=== PATIENT | male | born 1945 | race African-American/Black ===

== ENCOUNTER 2016-07-23 18:05 | Inpatient (IN) | payer BC ==
--- NOTE | ~2016-07-23 | CN ---
Consultation Report [facility] [address] [place]. [address] NAME: ACE MERLOS : 41 STATUS : ADM IN [facility]#: [id number] AGE: 71 ADM/REG DATE : 07/23/16 MR#: [id number] REPORT SERV DATE: 07/24/16 DICTATED BY: MERVIN PARSON DATE: 07/24/16 REPORT STATUS : Draft TRANSCRIBED BY: NAM DATE: 07/24/16 CONSULTATION DATE OF CONSULTATION: HISTORY OF PRESENT ILLNESS: This patient underwent a colonoscopy yesterday. Four polyps were removed. The procedure went uneventful. Few hours later, developed some rigors and some cough. He had a sore throat, hoarse voice. He did have a rapid respiratory rate. O2 saturation 85% on room air. Chest x-ray showed no definite pneumonia. He was admitted to the ICU. He is feeling better today having no dysphagia. MEDICATIONS: Medicines at home include potassium, Lasix. O2 saturation looks good. PHYSICAL EXAMINATION: GENERAL: Now, he is afebrile, saturating well on room air. Eating breakfast, which is red liquids. CHEST: Fairly clear. CARDIAC: Normal. ABDOMEN: Soft, nontender. IMPRESSION: Possible microaspiration during the procedure, but improved. No definite infiltrate. PLAN: 1. We will advance diet. 2. Follow along with you. MG/NAM Mervin Parson M.D. / [id number] CC: Roderick Tovar M.D.
--- NOTE | ~2016-07-23 | HP ---
History And Physical [address] [place]. [address] NAME: ACE MCCOY : 41 STATUS : ADM IN [facility]#: [id number] AGE: 71 ADM/REG DATE : 07/23/16 MR#: [id number] REPORT SERV DATE: 07/24/16 DICTATED BY: ANGELA RODRIGUES DATE: 07/23/16 REPORT STATUS : Draft TRANSCRIBED BY: MODL DATE: 07/23/16 DATE OF ADMISSION: 07/23/2016 POINT OF ENTRY: [facility] Emergency Department. PRIMARY STRAP STITCHER: Mervin Rankin M.D. CHIEF COMPLAINT: Chills and rigors. HISTORY OF PRESENT ILLNESS: Mr. Mccoy is a 71-year-old gentleman with history of gastroesophageal reflux disease, osteoarthritis, colonic polyps, and diverticulosis, who presents to the emergency department today with the acute onset of chills and rigors. The patient underwent outpatient colonoscopy with Dr. Rankin earlier today, which showed diverticulosis and polyps. Shortly after arriving home at approximately 3:00 or 3:30 this afternoon, he started to develop chills, rigors, as well as a cough with sputum production. The patient also reports some sore throat, hoarse voice as well as trouble swallowing. Upon arriving in the emergency department he then had an episode of nausea and vomiting. Denies any fevers, chest pain, palpitations, abdominal pain, diarrhea, constipation, dysuria, melena, hematochezia, hemoptysis, or hematemesis. Initial evaluation in the emergency department was notable for a pulse of 122, respirations of 28, saturating 85% on room air, and temperature was 98.8 degrees Fahrenheit. Labs notable for a normal white count with a lactic acid of 4.6. Chest x-ray is concerning for a left lower lobe infiltrate, concerning for pneumonia. The patient was started on IV Zosyn given concern for aspiration pneumonia and given 1 L of IV fluid prior to my evaluation. REVIEW OF SYSTEMS: Comprehensive review of systems otherwise negative unless listed in history of present illness. PREVIOUS MEDICAL HISTORY: 1. Osteoarthritis. 2. Gastroesophageal reflux disease. 3. Colonic polyps. 4. History of GI bleed secondary to diverticulosis. 5. Diverticulosis. PAST SURGICAL HISTORY: Left rotator cuff. ALLERGIES: NO KNOWN DRUG ALLERGIES. HOME MEDICATIONS: 1. Artificial Tears daily p.r.n. 2. Lasix 20 mg daily. 3. Potassium chloride 10 mEq daily. History And Physical [address] [address] NAME: ACE MCCOY : 41 STATUS : ADM IN PAT#: [id number] AGE: 71 ADM/REG DATE : 07/23/16 MR#: [id number] REPORT SERV DATE: 07/24/16 DICTATED BY: ANGELA RODRIGUES DATE: 07/23/16 REPORT STATUS : Draft TRANSCRIBED BY: NAM DATE: 07/23/16 4. Pravastatin 20 mg daily. SOCIAL HISTORY: Denies any tobacco, alcohol, or illicits. 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 FAMILY MEDICAL HISTORY: Mother of old age. Father's history is unknown. Siblings with diabetes. LABS AND IMAGIN. White count is 9.4, hemoglobin is 15.8, hematocrit is 47.6, and platelet count is 157. 2. Sodium is 140, potassium 3.6, chloride 106, carbon dioxide 26, BUN 17, creatinine 1.60, glucose is 157, calcium is 9.1, protein is 7.8, albumin is 3.8, bilirubin is 0.6, ALT is 25, AST is 17, and alkaline phosphatase is 72. 3. Urinalysis: Spec gravity is 1.018, no evidence of any infections. Lipase is 96. 4. Lactic acid is 4.6. 5. Chest x-ray per my review shows a left lower lobe basal infiltrate. 6. EKG per my review shows sinus tachycardia, heart rate of 103. No evidence of any acute ischemia or infarction. 7. ABG; pH is 7.44, pCO2 is 28, PO2 of 51, bicarb is 18, and saturating 89% on room air. PHYSICAL EXAMINATION: VITAL SIGNS: Temperature is 99.8 degrees Fahrenheit, pulse is 122, respirations 28, saturating 85% on room air, and blood pressure 136/88. On recheck, pulse is now 103, blood pressure is 125/72, saturating 100% on 3 L by nasal cannula, and repeat temperature is 98.9 degrees Fahrenheit. GENERAL: The patient is awake and alert, in no acute distress. Resting comfortably in bed. He is a well-developed, well-nourished, elderly male. Family is at bedside. Appears nontoxic. HEENT: Atraumatic and normocephalic. Moist mucous membranes. Pupils are equal, round, reactive to light and accommodation. Extraocular eye movements intact. No scleral icterus. NECK: No jugular venous distention. No carotid bruits. CARDIAC: Tachycardic rate, regular rhythm. No murmurs, rubs, or gallops. Normal S1, S2. LUNGS: He is on oxygen, but does not appear to be in any respiratory distress. Does have a left lower lobe basal rhonchi, otherwise no wheezes or rales or crackles appreciated. ABDOMEN: Soft, nontender, and nondistended. Good bowel sounds. No rebound, guarding, or rigidity. EXTREMITIES: Warm and perfused. No cyanosis, clubbing, or edema. SKIN: Warm and dry. PSYCH: Affect appropriate. NEURO: Alert and oriented x3. Cranial nerves 2 through 12 grossly intact. Speech is normal. Gait is not assessed. ASSESSMENT AND PLAN: Mr. Mccoy is a 71-year-old gentleman, who underwent recent colonoscopy now with evidence of severe sepsis and presumed aspiration pneumonia. PROBLEM LIST: 1. Severe sepsis. History And Physical [address] [address] NAME: ACE MCCOY : 41 STATUS : ADM IN [facility]#: [id number] AGE: 71 ADM/REG DATE : 07/23/16 MR#: [id number] REPORT SERV DATE: 07/24/16 DICTATED BY: ANGELA RODRIGUES DATE: 07/23/16 REPORT STATUS : Draft TRANSCRIBED BY: MODColton DATE: 07/23/16 2. Presumed aspiration pneumonia. 3. Acute hypoxic respiratory failure. 4. Acute kidney injury. 5. Dysphagia. 6. Nausea and vomiting. PLAN: 1. Severe sepsis. The patient meets criteria with tachycardia, tachypnea, source of infection as well as hypoxemia and elevated lactic acid level. We will bolus the patient 30 mL/kilos of IV fluid for a total of 2.5 L. I have ordered the additional a [id number]-uvl-[id number]-half to get to that. We will repeat a lactic acid level in three hours. We will place the patient on broad-spectrum antibiotics of IV Zosyn. We will admit the patient to the IMCU for close monitoring given severe sepsis. Of note, the patient's vital signs are stable and heart rate is improving. 2. Presumed aspiration pneumonia. The patient has evidence of a left lower lobe basal infiltrate. Given recent colonoscopy we suspect this is aspiration, we will treat as such with IV Zosyn. Follow up blood and sputum cultures as well as urinary antigens. 3. Acute kidney injury. Provide aggressive IV fluid hydration. 4. Dysphagia. Unclear etiology of the patient's dysphagia as he did not have an upper endoscopy or intubation as far as I am aware. We will consult Speech Therapy for evaluation. 5. Nausea and vomiting. The patient denies any abdominal pain. We will continue to monitor. I suspect it may be related to his sepsis and pneumonia. 6. DVT prophylaxis. Lovenox subcu. CODE STATUS: The patient wished to be full code. JCB/MODL Angela Rodrigues MD / [id number] CC: Roderick Tovar M.D. Michael Goodman, M.D.
--- NOTE | ~2016-07-23 | DS ---
Discharge Summary [facility] [address] [place]. [address] NAME: ACE MERLOS : 41 STATUS : DIS IN PAT#: [id number] AGE: 71 ADM/REG DATE : 07/23/16 MR#: [id number] REPORT SERV DATE: 07/26/16 DICTATED BY: TOPHER RATLIFF DATE: 07/25/16 REPORT STATUS : Draft TRANSCRIBED BY: MODColton DATE: 07/25/16 ADMISSION DATE: 07/23/2016 DISCHARGE DATE: 07/25/2016 REASON FOR ADMISSION: This is a 71-year-old gentleman with a history of polyps. He had presented to the emergency department with acute onset of chills, rigors, and cough. Had undergone an outpatient colonoscopy earlier in the day of admission and shortly after arriving home, began developing chills, rigors, a productive cough, sore throat, and hoarse voice. He came to the emergency department, had an episode of nausea and vomiting. DISCHARGE DIAGNOSES: 1. Aspiration pneumonitis, status post recent colonoscopy. 2. Sepsis, present on admission. 3. Hypoxic respiratory failure. 4. Acute kidney injury on chronic kidney disease, 2. HOSPITAL COURSE: 1. Aspiration pneumonitis. On admission, the patient had a chest x-ray that showed a concern for possible left lower lobe pneumonia. The patient had a swallow study performed which he passed. On admission, he had a normal white blood cell count, but he had a lactic acid of 4.6, hypoxia with a room air sat of 85%, heart rate of 122, and respirations of 28. He was admitted, and placed on IV Zosyn and aggressive IV fluids. The patient's procalcitonin on admit was 0.07, and then on the it was 19.98. His white blood cell count, which was normal at admit, went up to 16.0 and then down to 13.5 today. The patient's hypoxia resolved. His O2 sats were good on room air. No respiratory distress. Still having a productive cough with dark chen-colored sputum, but no fevers and no more rigors or chills. The patient has received 48 hours of IV Zosyn and appears stable for discharge. 2. Acute kidney injury on chronic kidney disease. On admission, the patient's creatinine was 1.60. His baseline is around 1.2 to 1.3. At discharge, his creatinine is 1.44. DISCHARGE CONDITION: Stable. DISCHARGE MEDICATIONS: 1. Furosemide 20 mg p.o. daily, to resume on 07/28. 2. Potassium chloride 10 mEq p.o. daily, resume on 07/28. 3. Pravachol 20 mg p.o. daily. 4. Guaifenesin 600 mg p.o. b.i.d. x7 days. 5. Augmentin 875 mg one tablet p.o. b.i.d. x4 more days. DISCHARGE PLAN: The patient is discharged home. Complete antibiotic course and follow up with primary care, Dr. Mino Broussard, next Saturday as previously scheduled. Discharge Summary [address] [address] NAME: ACE MERLOS : 41 STATUS : DIS IN PAT#: [id number] AGE: 71 ADM/REG DATE : 07/23/16 MR#: [id number] REPORT SERV DATE: 07/26/16 DICTATED BY: TOPHER RATLIFF DATE: 07/25/16 REPORT STATUS : Draft TRANSCRIBED BY: NAM DATE: 07/25/16 TDR/NAM Topher Ratliff APN / [id number] CC: Roderick Valdes M.D. Michael Goodman, M.D.
[2016-07-23 17:03] LABS: BASOPHILS 0.1 %; BASOPHILS ABSOLUTE 0.01 10/3/uL (0.0-0.16); EOSINOPHILS 0 %; IMMATURE GRANULOCYTES 0.1 %; IMMATURE GRANULOCYTES ABSOLUTE 0.01 10/3/uL (0.0-0.11); LYMPHOCYTES 18.7 %; LYMPHOCYTES ABSOLUTE 1.76 10/3/uL (0.67-4.30); MEAN CORPUS HGB CONC 33.6 g/dL (32.0-36.0); MEAN CORPUSCULAR HEMOGLOB 29.8 pg (26.0-34.0); MEAN CORPUSCULAR VOLUME 88.5 fL (80-100); MEAN PLATELET VOLUME 9.3 fL (9.2-13.0); MONOCYTES 1.8 %; MONOCYTES ABSOLUTE 0.17 10/3/uL (0.21-1.20); NEUTROPHILS 79.3 %; NEUTROPHILS ABSOLUTE 7.48 10/3/uL (2.02-8.40); PLATELET COUNT 157 10/3/uL (150-400); RBC DISTRIBUTION WIDTH 14.1 % (12.0-16.0)
[2016-07-23 17:05] LABS: ER CBC TAT 0 Hrs 08 Mins; HEMOGLOBIN 15.8 g/dL (13.6-17.8); MANUAL DIFF NO %; RED CELL COUNT 5.31 10/6/uL (4.7-6.1); WHITE BLOOD CELLS 9.4 10/3/uL (4.5-10.5)
[2016-07-23 17:10] LABS: INTERNATIONAL NORMAL RATI 1.2 UNITS (-); PROTIME (NOT ORD) 14.6 SEC (12.0-14.5)
[2016-07-23 17:20] LABS: ALBUMIN 3.8 G/DL (3.5-5.0); ALKALINE PHOSPHATASE 72 U/L (45-117); BUN (BLOOD UREA NITROGEN) 17 MG/DL (6-23); CALCIUM, SERUM 9.1 MG/DL (8.5-10.4); CHLORIDE, SERUM 106 MMOL/L (96-112); CO2 (CARBON DIOXIDE) 26 MMOL/L (24-34); GFR AFRICAN AMERICAN 49 ML/MIN (>=60); GFR NON AFRICAN AMERICAN 42 ML/MIN (>=60); POTASSIUM, SERUM 3.6 MMOL/L (3.5-5.3); SGOT(AST) 17 U/L (5-40); SGPT(ALT) 25 U/L (5-65); SODIUM, SERUM 140 MMOL/L (135-148); TOTAL BILIRUBIN 0.6 MG/DL (0-1.2); TOTAL PROTEIN 7.8 G/DL (6.0-8.5)
[2016-07-23 17:22] LABS: GLUCOSE, SERUM 157 MG/DL (60-99)
[2016-07-23 17:28] LABS: LACTATE 4.6 MMOL/L (0.3-2.4)
[2016-07-23 17:29] LABS: ALLENS TEST Pos; BE (BASE EXCESS) -4.1 MEQ/L (0 +/- 2.5); CARBOXYHEMOGLOBIN 1.4 % (0-3); HCO3 (ACTUAL BICARBONATE) 18.4 MEQ/L (23-27); HEMOBLOGIN CONTENT 15.7 G/DL (14-18); INSTRUMENT SERIAL # 8087; METHEMOGLOBIN 0.5 % (0-3); O2 CONTENT 19.1 VOL% (18-24); OPERATOR ID 32214; PCO2 (CO2 TENSION) 28 MMHG (35-45); PO2 (O2 TENSION) 51 MMHG (79-93); SAMPLE Arterial; pH 7.44 (7.37-7.43)
[~2016-07-23 18:05] MED LIST: MELOXICAM OR; MOBIC15 MG PO; NEXIUM; NEXIUM40 PO; PRAVAC PO; PRAVASTATIN
[2016-07-23] MEDS ORDERED: PRAVAC PO (18:11)
[2016-07-23] MEDS ORDERED: L20 PO (18:11)
[2016-07-23] MEDS ORDERED: KDUR10 PO (18:11)
[2016-07-23] MEDS ORDERED: SUPREP BOWEL PREP PO (18:12)
[2016-07-23] MEDS ORDERED: BION TEARS (18:12)
[2016-07-23 18:43] LABS: WBC (NOT ORDERED) (RFLEX) 0 (0-5)
[2016-07-23 18:57] LABS: ASCORBIC ACID (UR NOT ORDER) NEG (NEG); BILIRUBIN, URINE NEGATIVE (NEG); ER URINALYSIS TAT 0 Hrs 15 Mins; KETONE, URINE 20 MG/DL (NEG); LEUKOCYTE ESTERASE(NOT OR NEG (NEG); NITRITE (URINE) NEG (NEG)
[2016-07-23 22:28] LABS: TROPONIN I <0.02 NG/ML (<0.05)
[2016-07-23 23:14] LABS: PROCALCITONIN 0.07 ng/mL (<0.5)
[2016-07-24 05:36] LABS: BASOPHILS 0.1 %; BASOPHILS ABSOLUTE 0.01 10/3/uL (0.0-0.16); EOSINOPHILS 0.1 %; EOSINOPHILS ABSOLUTE 0.01 10/3/uL (0.0-0.53); HEMOGLOBIN 13.1 g/dL (13.6-17.8); IMMATURE GRANULOCYTES 0.2 %; IMMATURE GRANULOCYTES ABSOLUTE 0.03 10/3/uL (0.0-0.11); LYMPHOCYTES 9.7 %; LYMPHOCYTES ABSOLUTE 1.55 10/3/uL (0.67-4.30); MEAN CORPUS HGB CONC 33.9 g/dL (32.0-36.0); MEAN CORPUSCULAR HEMOGLOB 29.6 pg (26.0-34.0); MEAN CORPUSCULAR VOLUME 87.4 fL (80-100); MEAN PLATELET VOLUME 9.3 fL (9.2-13.0); MONOCYTES 8.1 %; NEUTROPHILS 81.8 %; NEUTROPHILS ABSOLUTE 13.12 10/3/uL (2.02-8.40); PLATELET COUNT 125 10/3/uL (150-400); RBC DISTRIBUTION WIDTH 14.1 % (12.0-16.0); RED CELL COUNT 4.43 10/6/uL (4.7-6.1)
[2016-07-24 05:41] LABS: HEMATOCRIT 38.7 % (40.0-51.0); MANUAL DIFF NO %
[2016-07-24 05:45] LABS: BUN (BLOOD UREA NITROGEN) 17 MG/DL (6-23); CHLORIDE, SERUM 111 MMOL/L (96-112); CO2 (CARBON DIOXIDE) 27 MMOL/L (24-34); GFR AFRICAN AMERICAN 53 ML/MIN (>=60); GFR NON AFRICAN AMERICAN 46 ML/MIN (>=60); PHOSPHORUS, SERUM 2.4 MG/DL (2.5-4.5); POTASSIUM, SERUM 4.1 MMOL/L (3.5-5.3); SODIUM, SERUM 144 MMOL/L (135-148)
[2016-07-24 05:48] LABS: ALBUMIN 2.8 G/DL (3.5-5.0); GLUCOSE, SERUM 124 MG/DL (60-99)
[2016-07-25 05:27] LABS: CALCIUM, SERUM 8.8 MG/DL (8.5-10.4); CHLORIDE, SERUM 113 MMOL/L (96-112); CO2 (CARBON DIOXIDE) 24 MMOL/L (24-34); CREATININE 1.44 MG/DL (0.70-1.30); GFR AFRICAN AMERICAN 55 ML/MIN (>=60); GFR NON AFRICAN AMERICAN 48 ML/MIN (>=60); GLUCOSE, SERUM 100 MG/DL (60-99); POTASSIUM, SERUM 3.9 MMOL/L (3.5-5.3); SODIUM, SERUM 146 MMOL/L (135-148)
[2016-07-25 05:27] LABS: BASOPHILS 0.1 %; BASOPHILS ABSOLUTE 0.01 10/3/uL (0.0-0.16); EOSINOPHILS 0.6 %; EOSINOPHILS ABSOLUTE 0.08 10/3/uL (0.0-0.53); HEMATOCRIT 39.5 % (40.0-51.0); HEMOGLOBIN 13.2 g/dL (13.6-17.8); IMMATURE GRANULOCYTES 0.1 %; IMMATURE GRANULOCYTES ABSOLUTE 0.02 10/3/uL (0.0-0.11); LYMPHOCYTES 13.3 %; LYMPHOCYTES ABSOLUTE 1.79 10/3/uL (0.67-4.30); MEAN CORPUS HGB CONC 33.4 g/dL (32.0-36.0); MEAN CORPUSCULAR HEMOGLOB 29.5 pg (26.0-34.0); MEAN CORPUSCULAR VOLUME 88.4 fL (80-100); MEAN PLATELET VOLUME 9.4 fL (9.2-13.0); MONOCYTES 7.4 %; NEUTROPHILS 78.5 %; NEUTROPHILS ABSOLUTE 10.55 10/3/uL (2.02-8.40); PLATELET COUNT 118 10/3/uL (150-400); RBC DISTRIBUTION WIDTH 14.2 % (12.0-16.0); RED CELL COUNT 4.47 10/6/uL (4.7-6.1); WHITE BLOOD CELLS 13.5 10/3/uL (4.5-10.5)
[2016-07-25 05:30] LABS: MANUAL DIFF NO %
[2016-07-25 05:39] LABS: BUN (BLOOD UREA NITROGEN) 13 MG/DL (6-23)
[2016-07-25 06:51] LABS: PROCALCITONIN 19.98 ng/mL (<0.5)
[2016-07-25] MEDS ORDERED: AUG875 PO (11:37)
[2016-07-25] MEDS ORDERED: MUCINEX600 MG PO (11:37)
== END 2016-07-25 15:19 | disposition home or self-care (01) | DRG 871 ==
LOC: ER 18:05 → IMCU 20:03 → 4SO 07-24 12:23
PROVIDERS: Emergency Medicine; Hospitalist; Internal Medicine
DX: A41.9 Sepsis, unspecified organism (principal); J96.01 Acute respiratory failure with hypoxia; J69.0 Pneumonitis due to inhalation of food and vomit; N17.9 Acute kidney failure, unspecified; R65.20 Severe sepsis without septic shock; K21.9 Gastro-esophageal reflux disease without esophagitis; M19.90 Unspecified osteoarthritis, unspecified site; Z86.010 Personal history of colon polyps; K57.90 Diverticulosis of intestine, part unspecified, without perforation or abscess without bleeding; R13.10 Dysphagia, unspecified; Z98.890 Other specified postprocedural states; N18.2 Chronic kidney disease, stage 2 (mild)
CPT/HCPCS: 36600; 71010; 80048; 80053; 80069; 81001; 82805; 83605; 83690; 83880; 84145; 84484; 85025; 85610; 85730; 87040; 87449; 87641; 92610-GN; 93005; 96365; 96375; 99291; A9270-GY; J0456; J2543